=== PATIENT | male | born 1980 | race Caucasian/White ===

== ENCOUNTER 2019-09-27 07:28 | Emergency (ER) | payer MEDICAID ==
[~2019-09-27] VITALS: Ht 190.5 cm; Wt 97.0 kg
--- NOTE | 2019-09-27 07:45 | NUR ---
perla. report received from [facility]. pt c/o cp with sob started today. pt has dzy for a few weeks as well. pt also c/o numbness feeling on bilateral arms/feet. 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 pt's aox4. resps even and unlabored. all monitors in place. call light within reach. nsr rate 50-60's on ekg monitor tech at this time. ekg done at bedside.
[2019-09-27] MEDS ORDERED: LORazepam 1MG TABLET PO ONE (08:00)
[2019-09-27] MEDS ORDERED: LORazepam 1MG TABLET ONE (08:07)
--- NOTE | 2019-09-27 08:09 | NUR ---
PT MEDICATED PER [facility]. PT TOLERATED WELL.
[2019-09-27 08:51] LABS: BASOPHILS # (AUTO) 0.03 x10^3/uL (0-0.1); BASOPHILS % (AUTO) 0 % (0-1); EOSINOPHILS # (AUTO) 0.08 x10^3/uL (0-0.4); EOSINOPHILS % (AUTO) 1 % (1-7); LYMPHOCYTES # (AUTO) 1.36 x10^3/uL (1-3.4); LYMPHOCYTES % (AUTO) 12 % (22-44); MD NO; MEAN CORPUSCULAR HEMOGLOBIN 30.4 pg (27.5-34.5); MEAN CORPUSCULAR HGB CONC 32.7 g/dL (33.2-36.2); MONOCYTES # (AUTO) 0.71 x10^3/uL (0.2-0.8); MONOCYTES % (AUTO) 6 % (2-9); NEUTROPHILS % (AUTO) 81 % (42-75); PLATELET COUNT 231 x10^3/uL (130-400); RED BLOOD COUNT 4.55 x10^6/uL (4.38-5.82); RED CELL DISTRIBUTION WIDTH 13.7 % (9.4-14.8)
[2019-09-27 08:59] LABS: ALANINE AMINOTRANSFERASE 26 U/L (12-78); ANION GAP 7 mmol/L (5-15); CALCIUM 8.7 mg/dL (8.5-10.1); CHLORIDE 109 mmol/L (98-107); CREATININE 0.96 mg/dL (0.7-1.3)
[2019-09-27 09:04] LABS: ALKALINE PHOSPHATASE 53 U/L (45-117); BILIRUBIN,TOTAL 0.6 mg/dL (0.2-1.0); TOTAL PROTEIN 6.8 g/dL (6.4-8.2); TROPONIN I < 0.015 ng/mL (0.000-0.045)
--- NOTE | 2019-09-27 09:32 | NUR ---
PT RESTING IN [facility]. PT'S AOX4. RESPS EVEN AND UNLABORED. ALL MONITORS IN PLACE. CALL LIGHT WITHIN REACH.
[2019-09-27 10:16] VITALS: BP 117/71
--- NOTE | 2019-09-27 10:18 | NUR ---
PT RESTING IN [facility]. PT'S AOX4. RESPS EVEN AND UNLABORED. ALL MONITORS IN PLACE. CALL LIGHT WITHIN REACH.
== END 2019-09-27 11:30 | disposition home or self-care (01) ==
LOC: ED 07:52
DX: R07.89 Other chest pain (principal); R06.00 Dyspnea, unspecified; R20.2 Paresthesia of skin; R42 Dizziness and giddiness; I30.9 Acute pericarditis, unspecified; Z79.899 Other long term (current) drug therapy
CPT/HCPCS: 36415; 71046; 80053; 80178; 83880; 84484; 85025; 93005; 99285